=== PATIENT | female | born 1995 | race Hispanic/Latino ===

== ENCOUNTER 2020-11-24 17:38 | Observation (INO) | payer OTHER ==
[2020-11-24] MEDS ORDERED: LACTATED RINGERS 1,000 ML IV SCH ×2 (19:00→21:30)
[2020-11-24] MEDS ORDERED: DOCUSATE SODIUM 100 MG CAP PO PRN (21:26)
[2020-11-24] MEDS ORDERED: ACETAMINOPHEN 325 MG TAB PO PRN (21:26)
[2020-11-24] MEDS ORDERED: hydrOXYzine PAMOATE 25 MG CAP PO ONE (21:38)
[2020-11-24] MEDS ORDERED: PRENATAL VIT27-FE FUMARATE-FOLIC ACID VIT TAB PO SCH (22:00)
[2020-11-24 22:19] LABS: Basophils # (Auto) 0.1 K/mm3 (0.0-0.1); Basophils % (Auto) 0.7 % (0.0-1.8); Eosinophils % (Auto) 0.3 % (0.0-4.3); Hematocrit 30.8 % (30.3-42.9); Hemoglobin 10.7 gm/dl (10.1-14.3); Lymphocytes # (Auto) 2.6 K/mm3 (1.2-5.4); Lymphocytes % (Auto) 29.5 % (13.4-35.0); Mean Corpuscular HGB Conc 35 % (30-34); Mean Corpuscular Volume 90 fl (79-97); Monocytes # (Auto) 0.5 K/mm3 (0.0-0.8); Monocytes % (Auto) 5.6 % (0.0-7.3); Platelet Count 276 K/mm3 (140-440); Red Blood Count 3.44 M/mm3 (3.65-5.03); Red Cell Distribution Width 15.8 % (13.2-15.2)
[2020-11-24 22:20] LABS: Bilirubin,Urine NEG (Negative); Blood,Urine NEG (Negative); Color,Urine Colorless (Yellow); Protein,Urine <15 mg/dL mg/dL (Negative); RBC,Urine < 1.0 /HPF (0.0-6.0); Urobilinogen,Urine < 2.0 mg/dL (<2.0)
[2020-11-24 22:21] LABS: WBC,Urine < 1.0 /HPF (0.0-6.0)
[2020-11-24] MEDS ORDERED: fentaNYL 100 MCG/2 ML INJ IV ONE (22:27)
[2020-11-24 22:29] LABS: Amphetamine Screen,Urine PRESUMPTIVE NEGATIVE; Benzodiazepines Screen,Urine PRESUMPTIVE NEGATIVE; Cannabinoid Screen,Urine PRESUMPTIVE NEGATIVE; Cocaine Screen,Urine PRESUMPTIVE NEGATIVE; Methadone Screen,Urine PRESUMPTIVE NEGATIVE; Opiate Screen,Urine PRESUMPTIVE NEGATIVE
[2020-11-25] MEDS ORDERED: fentaNYL 100 MCG/2 ML INJ IV ONE (02:51)
[2020-11-25 04:40] VITALS: BP 105/68
== END 2020-11-25 07:40 | disposition home or self-care (01) ==
LOC: TRG 17:38 → APU 17:39 → LD 21:26 → TRG 21:26 → LD 22:06
PROVIDERS: ADMIT Obstetrics & Gynecology; ATTEND Obstetrics & Gynecology
DX: O47.1 False labor at or after 37 completed weeks of gestation (principal); O62.9 Abnormality of forces of labor, unspecified; O99.513 Diseases of the respiratory system complicating pregnancy, third trimester; J45.909 Unspecified asthma, uncomplicated; Z3A.38 38 weeks gestation of pregnancy; Z90.49 Acquired absence of other specified parts of digestive tract; Z86.19 Personal history of other infectious and parasitic diseases; Z79.899 Other long term (current) drug therapy
CPT/HCPCS: 36415; 76816; 76819; 80307; 81001; 84112; 85025; 86850; 86900; 86901; 96374; 96376; G0378; J3010; J7120

== ENCOUNTER 2020-12-04 15:17 | Outpatient (CLI) | payer OTHER | END 2020-12-04 16:45 | disposition home or self-care (01) | LOC: TRG 15:17 → APU 15:18 → TRG 16:45 | DX: O26.893 Other specified pregnancy related conditions, third trimester (principal); M54.5 Low back pain; Z3A.40 40 weeks gestation of pregnancy | CPT/HCPCS: 59025 ==

== ENCOUNTER 2020-12-08 20:40 | Inpatient (IN) | payer OTHER ==
[2020-12-08] MEDS ORDERED: LIDOCAINE (2%) 20 MG/1 ML VIAL 20 ML MDV INFILTRATI ONE (20:58)
[2020-12-08] MEDS ORDERED: AMPICILLIN/NS 2 GM/100 ML 2 GM/100 ML BAG IV ONE (20:58)
[2020-12-08] MEDS ORDERED: TERBUTALINE 1 MG/1 ML INJ SUB-Q PRN (20:58)
[2020-12-08] MEDS ORDERED: LOPERAMIDE 2 MG CAP PO PRN (20:58)
[2020-12-08] MEDS ORDERED: ePHEDrine SULFATE 50 MG/1 ML INJ IV PRN (20:58)
[2020-12-08] MEDS ORDERED: CARBOPROST TROMETHAMINE 250 MCG/1 ML INJ IM PRN (20:58)
[2020-12-08] MEDS ORDERED: miSOPROStol 200 MCG TAB PR PRN (20:58)
[2020-12-08] MEDS ORDERED: OXYTOCIN 10 UNIT/1 ML INJ IM PRN (20:58)
[2020-12-08] MEDS ORDERED: METHYLERGONOVINE MALEATE 0.2 MG/ML VIAL IM PRN (20:58)
[2020-12-08] MEDS ORDERED: MINERAL OIL 30 ML ORAL LIQD PO PRN (20:58)
[2020-12-08] MEDS ORDERED: OXYTOCIN DRIP 30 UNITS/500 ML BAG IV SCH ×2 (21:00→22:00)
--- NOTE | 2020-12-08 21:20 | History and Physical Report ---
History of Present Illness Date of examination: 12/08/20 Date of admission: 12/08/20 20:40 Chief complaint: Here for scheduled induction of labor. History of present illness: 25 year old presents for scheduled induction of labor. Patient received care at [facility] and records are available. LMP 03/22/2020. EDC 11/28/2020 (based on ultrasound). significant for the following: anemia, late care, noncompliant with care, UTI (treated), varicella nonimmune, cigarette smoker. labs are as follows: O+, antibody screen negative, rubella immune, RPR nonreactive, HIV negative, hepatitis B surface antigen negative, hemoglobin electrophoresis negative, gonorrhea negative, chlamydia negative, trichomonas negative, varicella immune, 1 hour 126, GBS unknown. Past History Past Medical History: asthma, other (seasonal allergic rhinitis) Past Surgical History: tonsillectomy, other (EAB) [employer] History: denies: chlamydia, gonorrhea, hepatitis B, hepatitis C, herpes, HIV, syphilis, trichomonas Family/Genetic History: diabetes, heart disease, cancer Social history: lives with family, smoking, full code. denies: alcohol abuse, prescription drug abuse, IV drug use - Obstetrical History Expected Date of Delivery: 11/28/20 Actual Gestation: 41 Week(s) 3 Day(s) : 3 Para: 1 Hx # Term Pregnancies: 1 Number of Pregnancies: 0 Spontaneous Abortions: 0 Induced : 1 Number of Living Children: 1 Medications and Allergies Allergies Allergy/AdvReac Type Severity Reaction Status Date / Time cat dander Allergy Itching Verified 12/08/20 21:18 Home Medications Medication Instructions Recorded Confirmed Last Taken Type Iron [Iron 18 MG TAB] 1 tab PO DAILY 11/25/20 12/08/20 11/24/20 History Ondansetron HCl [Zofran] 1 tab PO PRN 11/25/20 12/08/20 1 Day Ago History ~12/07/20 Vit-Fe Fumar-FA [ 1 tab PO DAILY 11/25/20 12/08/20 1 Day Ago History Vitamin] ~12/07/20 Active Meds: Active Medications Carboprost Tromethamine (Carboprost Tromethamine 250 Mcg/1 Ml Inj) 250 mcg IM ONCE PRN PRN Reason: Uterine Bleeding Ephedrine Sulfate (Ephedrine Sulfate 50 Mg/1 Ml Inj) 10 mg IV Q2M PRN PRN Reason: Hypotension Lactated Ringer's (Lactated Ringers) 1,000 mls @ 125 mls/hr IV DIRECT LISA Oxytocin/Sodium Chloride (Pitocin/Ns 30 Unit/500ml) 30 units in 500 mls @ 40 mls/hr IV TITR LISA; Protocol Ampicillin Sodium (Ampicillin/Ns 2 Gm/100 Ml) 2 gm in 100 mls @ 100 mls/hr IV ONCE ONE; Protocol Stop: 12/08/20 21:57 Ampicillin Sodium (Ampicillin/Ns 1 Gm/50 Ml) 1 gm in 50 mls @ 100 mls/hr IV Q4H LISA; Protocol Lidocaine (Lidocaine (2%) 20 Mg/1 Ml Vial 20 Ml Mdv) 20 ml INFILTRATI ONCE ONE Stop: 12/08/20 20:59 Loperamide HCl (Loperamide 2 Mg Cap) 2 mg PO ONCE PRN PRN Reason: give with Hemabate Methylergonovine Maleate (Methylergonovine Maleate 0.2 Mg/Ml Vial) 0.2 mg IM ONCE PRN PRN Reason: Uterine Bleeding Mineral Oil (Mineral Oil 30 Ml Oral Liqd) 30 ml PO QHS PRN PRN Reason: Constipation Misoprostol (Misoprostol 200 Mcg Tab) 800 mcg LA ONCE PRN PRN Reason: Uterine Bleeding Ondansetron HCl (Ondansetron 4 Mg/2 Ml Inj) 4 mg IV Q8H PRN PRN Reason: Nausea And Vomiting Oxytocin (Oxytocin 10 Unit/1 Ml Inj) 10 unit IM ONCE PRN PRN Reason: Uterine Bleeding Terbutaline Sulfate (Terbutaline 1 Mg/1 Ml Inj) 0.25 mg SUB-Q ONCE PRN PRN Reason: Hyperstimulation/Hypertonicity Review of Systems All systems: negative (mild contraction) - Physical Exam Lungs: Positive: Clear to auscultation Abdomen: Positive: normal appearance, soft. Negative: distention, tenderness, guarding, rigidity Genitourinary (Female): Positive: normal external genitalia, normal perenium. Negative: perineal/vulvar lesions Vagina: Positive: normal moisture Uterus: Positive: enlarged. Negative: tender Anus/Rectum: Positive: normal perianal skin Extremities: Positive: normal. Negative: tenderness, edema - Obstetrical FHR: category 1 Uterine Contraction Monitor Mode: External Cervical Dilatation: 1 Cervical Effacement Percentage: 50 station: -4 Uterine Contraction Pattern: Irregular Uterine Contraction Intensity: Mild Results Result Diagrams: 12/08/20 21:07 All other labs normal. Assessment and Plan A: at 41 3/7 weeks gestation. Scheduled IOL. GBS unknown. Noncompliant with care. P: Admit. Continuous EFM. GBS prophylaxis. Low dose Pitocin for augmentation of labor.
[2020-12-08 21:33] LABS: Hematocrit 28.5 % (30.3-42.9); Hemoglobin 10.2 gm/dl (10.1-14.3); Mean Corpuscular HGB Conc 36 % (30-34); Mean Corpuscular Volume 87 fl (79-97); Platelet Count 255 K/mm3 (140-440); Red Blood Count 3.29 M/mm3 (3.65-5.03); Red Cell Distribution Width 15.5 % (13.2-15.2)
[2020-12-08 21:58] LABS: Hepatitis C Virus Antibody Reactive (NonReactive)
--- NOTE | 2020-12-08 22:33 | Ultrasound Report ---
Limited OB ultrasound INDICATION: presentation FINDINGS: There is a single live intrauterine in cephalic position. heart rate is 114 bpm. IMPRESSION: Single live intrauterine in cephalic position Signer Name: Jonathan Barth MD Signed: 12/08/2020 10:29 PM Workstation Name: [id number]
[2020-12-08 22:45] LABS: Amphetamine Screen,Urine Negative; Benzodiazepines Screen,Urine Negative; Cannabinoid Screen,Urine Negative; Cocaine Screen,Urine Negative; Methadone Screen,Urine Negative; Opiate Screen,Urine Negative
[2020-12-08 23:38] LABS: Alanine Aminotransferase 19 units/L (7-56); Albumin 3.2 g/dL (3.9-5); Blood Urea Nitrogen 6 mg/dL (7-17); Calcium 8.5 mg/dL (8.4-10.2); Hemolysis Index 15
[2020-12-09 00:01] LABS: BUN/Creatinine Ratio 10
[2020-12-09] MEDS: LACTATED RINGERS 1,000 ML IV SCH ×2 (00:03→13:17)
[2020-12-09] MEDS ORDERED: AMPICILLIN/NS 1 GM/50 ML 1 GM/50 ML BAG IV SCH (02:00)
[2020-12-09] MEDS ORDERED: AMPICILLIN/NS 2 GM/100 ML 2 GM/100 ML BAG IV SCH (10:00)
--- NOTE | 2020-12-09 10:24 | Progress Note ---
Assessment and Plan A: IUP @ 41 4/7 Weeks Category I Tracing GBS Unknown P: Continue Low-Dose Pitocin Cook's Cervical Ripening Balloon Placed IV Pain Control Start GBS Prophylaxis Subjective - Subjective Date of service: 12/09/20 Patient reports: movement normal, contractions, other (Requesting IV Pain Control) Objective - Vital Signs Vital Signs: Vital Signs - 12hr 12/09/20 12/09/20 12/09/20 02:56 03:04 07:04 Temperature 98.1 F Pulse Rate 75 80 Respiratory 18 Rate Blood Pressure 111/54 91/52 12/09/20 12/09/20 07:43 09:15 Temperature 97.8 F Pulse Rate 88 Respiratory 16 Rate Blood Pressure 93/51 - Exam Breasts: normal Cardiovascular: Regular rate Lungs: Clear to auscultation, Normal air movement Abdomen: Present: normal appearance, soft, normal bowel sounds Uterus: Present: normal, firm, fundal height above umbilicus FHR: category 1 Uterine Contraction Monitor Mode: External Cervical Dilatation: 1 (Vtx; Intact) Cervical Effacement Percentage: 30 station: -4 Uterine Contraction Pattern: Regular Uterine Tone Measurement Phase: Resting Uterine Contraction Intensity: Moderate Extremities: normal - Labs Labs: Abnormal Labs 12/08/20 12/08/20 12/08/20 21:07 21:07 22:55 RBC 3.29 L Hct 28.5 L MCHC 36 H RDW 15.5 H BUN 6 L Alkaline Phosphatase 180 H Albumin 3.2 L Hepatitis C Antibody Reactive A Laboratory Results - last 24 hr 12/08/20 12/08/20 12/08/20 21:07 21:07 21:07 WBC 7.5 RBC 3.29 L Hgb 10.2 Hct 28.5 L MCV 87 MCH 31 MCHC 36 H RDW 15.5 H Plt Count 255 Sodium Potassium Chloride Carbon Dioxide Anion Gap BUN Creatinine Estimated GFR BUN/Creatinine Ratio Glucose Calcium Total Bilirubin AST ALT Alkaline Phosphatase Total Protein Albumin Albumin/Globulin Ratio Urine Opiates Screen Urine Methadone Screen Ur Barbiturates Screen Ur Phencyclidine Scrn Ur Amphetamines Screen U Benzodiazepines Scrn Urine Cocaine Screen U Marijuana (THC) Screen Drugs of Abuse Note Syphilis IgG Antibody Nonreactive Hep Bs Antigen Hepatitis C Antibody Reactive A HIV 1&2 Antibody Rapid HIV P24 Antigen Blood Type O POSITIVE Antibody Screen Negative 12/08/20 12/08/20 12/08/20 21:07 21:07 22:28 WBC RBC Hgb Hct MCV MCH MCHC RDW Plt Count Sodium Potassium Chloride Carbon Dioxide Anion Gap BUN Creatinine Estimated GFR BUN/Creatinine Ratio Glucose Calcium Total Bilirubin AST ALT Alkaline Phosphatase Total Protein Albumin Albumin/Globulin Ratio Urine Opiates Screen Negative Urine Methadone Screen Negative Ur Barbiturates Screen Negative Ur Phencyclidine Scrn Negative Ur Amphetamines Screen Negative U Benzodiazepines Scrn Negative Urine Cocaine Screen Negative U Marijuana (THC) Screen Negative Drugs of Abuse Note Disclamer Syphilis IgG Antibody Hep Bs Antigen Non-reactive Hepatitis C Antibody HIV 1&2 Antibody Rapid Non react HIV P24 Antigen Non react Blood Type Antibody Screen 12/08/20 22:55 WBC RBC Hgb Hct MCV MCH MCHC RDW Plt Count Sodium 138 Potassium 4.1 Chloride 103.3 Carbon Dioxide 24 Anion Gap 15 BUN 6 L Creatinine 0.6 Estimated GFR > 60 BUN/Creatinine Ratio 10 Glucose 90 Calcium 8.5 Total Bilirubin 0.20 AST 26 ALT 19 Alkaline Phosphatase 180 H Total Protein 6.4 Albumin 3.2 L Albumin/Globulin Ratio 1.0 Urine Opiates Screen Urine Methadone Screen Ur Barbiturates Screen Ur Phencyclidine Scrn Ur Amphetamines Screen U Benzodiazepines Scrn Urine Cocaine Screen U Marijuana (THC) Screen Drugs of Abuse Note Syphilis IgG Antibody Hep Bs Antigen Hepatitis C Antibody HIV 1&2 Antibody Rapid HIV P24 Antigen Blood Type Antibody Screen
[2020-12-09] MEDS ORDERED: AMPICILLIN/NS 2 GM/100 ML 2 GM/100 ML BAG IV ONE (10:27)
[2020-12-09] MEDS ORDERED: BUTORPHANOL 2 MG/1 ML INJ ONE (10:27)
[2020-12-09] MEDS: BUTORPHANOL 2 MG/1 ML INJ IV PRN ×2 (10:30→13:23)
--- NOTE | 2020-12-09 15:29 | Anesthesia Consultation ---
Anesthesia Consult and Med Hx Date of service: 12/09/20 - Airway Anesthetic Teeth Evaluation: Poor ROM Head & Neck: Adequate Mental/Hyoid Distance: Adequate Mallampati Class: Class II Intubation Access Assessment: Probably Good - Pulmonary Exam CTA: Yes - Cardiac Exam Cardiac Exam: RRR - Pre-Operative Health Status ASA Pre-Surgery Classification: ASA2 Proposed Anesthetic Plan: Epidural - Pulmonary Hx Smoking: Yes Hx Asthma: Yes (last attack in 08/11) Hx Respiratory Symptoms: No SOB: Yes COPD: No Home Oxygen Therapy: No Hx Pneumonia: No Hx Sleep Apnea: No - Cardiovascular System Hx Hypertension: No Hx Coronary Artery Disease: No Hx Heart Attack/AMI: No Hx Angina: No Hx Percutaneous Transluminal Coronary Angioplasty (PTCA): No Hx Cardia Arrhythmia: No Hx Pacemaker: No Hx Internal Defibrillator: No Hx Valvular Heart Disease: No Hx Heart Murmur: No Hx Peripheral Vascular Disease: No - Central Nervous System Hx Neuromuscular Disorder: No Hx Seizures: No Hx Back Pain: No Hx Psychiatric Problems: Yes (anxiety) - Gastrointestinal Hx Ulcer: No Hx Gastroesophageal Reflux Disease: Yes - Endocrine Hx Renal Disease: No Hx End Stage Renal Disease: No Hx Cirrhosis: No Hx Liver Disease: No Hx Insulin Dependent Diabetes: No Hx Non-Insulin Dependent Diabetes: No Hx Thyroid Disease: No Hx Hypothyroidism: No Hx Hyperthyroidism: No - Hematic Hx Anemia: No Hx Sickle Cell Disease: No - Other Systems Hx Alcohol Use: No Hx Substance Use: No Hx Cancer: No Hx Obesity: No
[2020-12-09] MEDS ORDERED: fentaNYL-BUPIV 2 MCG/ML-0.125% 200 MCG/100 ML BAG EPIDURAL ONE (15:36)
[2020-12-09] MEDS: fentaNYL-BUPIV 2 MCG/ML-0.125% 200 MCG/100 ML BAG EPIDURAL SCH (15:49)
--- NOTE | 2020-12-09 15:58 | Progress Note ---
Labor Epidural - Labor Epidural Start Time: 14:55 Stop Time: 15:10 Performed by:: MEG WHITNEY Procedure: Patient is requesting a laboring epidural for laboring pain. Patient IDed, H&P reviewed, all questions and concerns were answered, and consent was signed. Timeout was performed at bedside. Patient in sitting position. Sterile prep and drape was performed. [3] ml of 1% lidocaine skin wheal at L[3]- L [4]. 18- gauge Tuohy epidural needle was advanced to loss of resistance with saline technique 6cm. Negative CSF negative blood. Epidural catheter advanced to [10] centimeters. [NEGATIVE] Aspiration [NEGATIVE] test dose. Sterile dressing applied. Patient tolerated procedure.
[2020-12-09] MEDS ORDERED: NALOXONE 2 MG/2 ML INJ IV PRN (16:00)
[2020-12-09] MEDS: ePHEDrine SULFATE 50 MG/1 ML INJ IV PRN ×2 (16:08→16:15)
[2020-12-09] MEDS: ONDANSETRON 4 MG/2 ML INJ IV PRN (19:22)
--- NOTE | 2020-12-09 22:33 | Progress Note ---
Assessment and Plan CVONTINUE INDUCTION WITH PITOCIN AND EPIDURAL. - Patient Problems (1) 38 weeks gestation of Current Visit: No Status: Acute (2) False labor Current Visit: No Status: Acute Subjective Date of service: 12/09/20 Principal diagnosis: 41 wk IUP Objective - Constitutional Vitals: Vital Signs - 12hr 12/09/20 12/09/20 12/09/20 13:23 15:00 15:05 Temperature Pulse Rate 96 H 97 H Respiratory 20 Rate Blood Pressure 108/70 O2 Sat by Pulse 99 99 Oximetry 12/09/20 12/09/20 12/09/20 15:10 15:12 15:14 Temperature Pulse Rate 95 H 86 94 H Respiratory Rate Blood Pressure 110/72 108/72 112/70 O2 Sat by Pulse 100 Oximetry 12/09/20 12/09/20 12/09/20 15:15 15:20 15:25 Temperature Pulse Rate 109 H 73 78 Respiratory Rate Blood Pressure O2 Sat by Pulse 99 97 98 Oximetry 12/09/20 12/09/20 12/09/20 15:30 15:32 15:35 Temperature Pulse Rate 78 86 109 H Respiratory Rate Blood Pressure 94/58 O2 Sat by Pulse 98 99 Oximetry 12/09/20 12/09/20 12/09/20 15:36 15:38 15:40 Temperature Pulse Rate 52 L 102 H 100 H Respiratory Rate Blood Pressure 116/63 O2 Sat by Pulse 80 L 96 Oximetry 12/09/20 12/09/20 12/09/20 15:43 15:45 15:50 Temperature Pulse Rate 87 97 H 93 H Respiratory Rate Blood Pressure 106/55 O2 Sat by Pulse 98 98 Oximetry 12/09/20 12/09/20 12/09/20 15:55 16:00 16:01 Temperature Pulse Rate 80 82 82 Respiratory Rate Blood Pressure 79/46 O2 Sat by Pulse 98 97 Oximetry 12/09/20 12/09/20 12/09/20 16:05 16:07 16:09 Temperature Pulse Rate 71 80 86 Respiratory Rate Blood Pressure 92/57 107/58 O2 Sat by Pulse 99 Oximetry 12/09/20 12/09/20 12/09/20 16:10 16:11 16:13 Temperature Pulse Rate 77 85 83 Respiratory Rate Blood Pressure 95/55 98/55 O2 Sat by Pulse 99 Oximetry 12/09/20 12/09/2021 16:15 16:17 16:20 Temperature Pulse Rate 98 H 86 81 Respiratory Rate Blood Pressure 98/60 97/55 O2 Sat by Pulse 98 98 Oximetry 12/09/20 12/09/20 12/09/20 16:25 16:30 16:35 Temperature Pulse Rate 83 105 H 89 Respiratory Rate Blood Pressure O2 Sat by Pulse 100 98 97 Oximetry 12/09/20 12/09/20 12/09/20 16:40 16:45 16:47 Temperature Pulse Rate 107 H 81 110 H Respiratory Rate Blood Pressure 90/56 O2 Sat by Pulse 98 99 Oximetry 12/09/20 12/09/20 12/09/20 16:50 16:55 17:00 Temperature Pulse Rate 92 H 100 H 84 Respiratory Rate Blood Pressure O2 Sat by Pulse 97 100 99 Oximetry 12/09/20 12/09/20 12/09/20 17:05 17:10 17:15 Temperature Pulse Rate 97 H 101 H 96 H Respiratory Rate Blood Pressure O2 Sat by Pulse 99 100 99 Oximetry 12/09/20 12/09/20 12/09/20 17:19 17:20 17:25 Temperature Pulse Rate 91 H 104 H 79 Respiratory Rate Blood Pressure 84/53 O2 Sat by Pulse 100 99 Oximetry 12/09/20 12/09/20 12/09/20 17:26 17:30 17:32 Temperature Pulse Rate 94 H 88 85 Respiratory Rate Blood Pressure 81/52 O2 Sat by Pulse 94 98 Oximetry 12/09/20 12/09/20 12/09/20 17:35 17:40 17:43 Temperature Pulse Rate 97 H 84 106 H Respiratory Rate Blood Pressure 88/55 O2 Sat by Pulse 100 100 87 Oximetry 12/09/20 12/09/20 12/09/20 17:45 17:50 17:55 Temperature Pulse Rate 111 H 67 102 H Respiratory Rate Blood Pressure 90/52 O2 Sat by Pulse 98 83 L 92 Oximetry 12/09/20 12/09/20 12/09/20 17:58 18:00 18:05 Temperature Pulse Rate 82 77 107 H Respiratory Rate Blood Pressure 85/48 O2 Sat by Pulse 95 86 Oximetry 12/09/20 12/09/20 12/09/20 18:06 18:08 18:10 Temperature Pulse Rate 114 H 94 H 104 H Respiratory Rate Blood Pressure 88/52 O2 Sat by Pulse 91 98 Oximetry 12/09/20 12/09/20 12/09/20 18:15 18:18 18:20 Temperature Pulse Rate 103 H 91 H 108 H Respiratory Rate Blood Pressure 91/58 O2 Sat by Pulse 98 100 Oximetry 12/09/20 12/09/20 12/09/20 18:25 18:30 18:31 Temperature Pulse Rate 82 97 H 95 H Respiratory Rate Blood Pressure 90/54 O2 Sat by Pulse 95 99 93 Oximetry 12/09/20 12/09/20 12/09/20 18:35 18:36 18:37 Temperature Pulse Rate 92 H 87 190 H Respiratory Rate Blood Pressure 116/65 O2 Sat by Pulse 98 87 Oximetry 12/09/20 12/09/20 12/09/20 18:40 18:43 18:45 Temperature Pulse Rate 100 H 83 101 H Respiratory Rate Blood Pressure O2 Sat by Pulse 98 92 100 Oximetry 12/09/20 12/09/20 12/09/20 18:48 18:50 18:55 Temperature Pulse Rate 94 H 84 100 H Respiratory Rate Blood Pressure 108/57 O2 Sat by Pulse 89 100 Oximetry 12/09/20 12/09/20 12/09/20 18:58 19:00 19:04 Temperature Pulse Rate 90 105 H 85 Respiratory Rate Blood Pressure 105/53 O2 Sat by Pulse 96 93 Oximetry 12/09/20 12/09/20 12/09/20 19:05 19:06 19:10 Temperature Pulse Rate 84 82 76 Respiratory Rate Blood Pressure 97/54 O2 Sat by Pulse 100 90 Oximetry 12/09/20 12/09/20 12/09/20 19:15 19:16 19:19 Temperature Pulse Rate 87 92 H 99 H Respiratory Rate Blood Pressure 88/51 O2 Sat by Pulse 100 91 Oximetry 12/09/20 12/09/20 12/09/20 19:20 19:25 19:26 Temperature Pulse Rate 91 H 89 91 H Respiratory Rate Blood Pressure 105/54 O2 Sat by Pulse 96 96 Oximetry 12/09/20 12/09/20 12/09/20 19:27 19:30 19:33 Temperature Pulse Rate 101 H 75 84 Respiratory Rate Blood Pressure O2 Sat by Pulse 86 85 94 Oximetry 12/09/20 12/09/20 12/09/20 19:35 19:38 19:40 Temperature Pulse Rate 88 85 99 H Respiratory Rate Blood Pressure O2 Sat by Pulse 89 88 96 Oximetry 12/09/20 12/09/20 12/09/20 19:44 19:45 19:50 Temperature Pulse Rate 87 100 H 93 H Respiratory Rate Blood Pressure O2 Sat by Pulse 90 98 95 Oximetry 12/09/20 12/09/20 12/09/20 19:51 19:55 19:57 Temperature Pulse Rate 93 H 97 H 82 Respiratory Rate Blood Pressure 96/54 O2 Sat by Pulse 90 98 Oximetry 12/09/20 12/09/20 12/09/20 20:00 20:01 20:05 Temperature Pulse Rate 96 H 98 H 51 L Respiratory Rate Blood Pressure O2 Sat by Pulse 98 90 88 Oximetry 12/09/20 12/09/20 12/09/20 20:06 20:08 20:10 Temperature Pulse Rate 90 91 H 97 H Respiratory Rate Blood Pressure 139/57 O2 Sat by Pulse 87 84 Oximetry 12/09/20 12/09/20 12/09/20 20:14 20:15 20:17 Temperature Pulse Rate 85 88 95 H Respiratory Rate Blood Pressure 83/51 O2 Sat by Pulse 91 86 Oximetry 12/09/20 12/09/20 12/09/20 20:20 20:22 20:25 Temperature Pulse Rate 98 H 96 H 87 Respiratory Rate Blood Pressure 84/62 O2 Sat by Pulse 99 93 99 Oximetry 12/09/20 12/09/20 12/09/20 20:26 20:27 20:30 Temperature 98.6 F Pulse Rate 82 97 H Respiratory Rate Blood Pressure O2 Sat by Pulse 92 99 Oximetry 12/09/20 12/09/20 12/09/20 20:34 20:35 20:39 Temperature Pulse Rate 103 H 99 H 95 H Respiratory Rate Blood Pressure O2 Sat by Pulse 87 89 92 Oximetry 12/09/20 12/09/20 12/09/20 20:40 20:45 20:47 Temperature Pulse Rate 90 91 H 106 H Respiratory Rate Blood Pressure O2 Sat by Pulse 98 100 93 Oximetry 12/09/20 12/09/20 12/09/20 20:50 20:54 20:55 Temperature Pulse Rate 91 H 97 H 94 H Respiratory Rate Blood Pressure 96/55 O2 Sat by Pulse 97 90 Oximetry 12/09/20 12/09/20 12/09/20 21:24 21:53 22:24 Temperature Pulse Rate 79 98 H 77 Respiratory Rate Blood Pressure 110/57 111/69 102/54 O2 Sat by Pulse Oximetry - Genitourinary Female genitourinary: other (CX 4CMS, 755,-4 STATION, BOW INTACT) - Labs CBC & Chem 7: 12/08/20 21:07 12/08/20 22:55 Labs: Abnormal lab results 12/08/20 Range/Units 22:55 BUN 6 L (7-17) mg/dL Alkaline Phosphatase 180 H (35-129) units/L Albumin 3.2 L (3.9-5) g/dL Medications & Allergies - Medications Allergies/Adverse Reactions: Allergies cat dander Allergy (Verified 12/08/20 22:07) Itching Home Medications: Home Medications Medication Instructions Recorded Confirmed Last Taken Type Iron [Iron 18 MG TAB] 1 tab PO DAILY 11/25/20 12/08/20 11/24/20 History Ondansetron HCl [Zofran] 1 tab PO PRN 11/25/20 12/08/20 1 Day Ago History ~12/07/20 Vit-Fe Fumar-FA [ 1 tab PO DAILY 11/25/20 12/08/20 1 Day Ago History Vitamin] ~12/07/20 Active Medications: Generic Name Dose Route Start Last Admin Trade Name Candy PRN Reason Stop Dose Admin Butorphanol Tartrate 2 mg 12/09/20 11:00 12/09/20 13:23 Butorphanol 2 Mg/1 Ml Inj IV 2 mg Q2H PRN Administration Labor Pain Carboprost Tromethamine 250 mcg 12/08/20 20:58 Carboprost Tromethamine 250 Mcg/1 Ml Inj IM ONCE PRN Uterine Bleeding Ephedrine Sulfate 10 mg 12/09/20 16:00 12/09/20 16:15 Ephedrine Sulfate 50 Mg/1 Ml Inj IV 10 mg Q2M PRN Administration Hypotension Lactated Ringer's 1,000 mls @ 125 mls/hr 12/08/20 21:00 12/09/20 13:17 Lactated Ringers IV 125 mls/hr DIRECT LISA Administration Oxytocin/Sodium Chloride 30 units in 500 mls @ 40 mls/hr 12/08/20 21:00 Pitocin/Ns 30 Unit/500ml IV TITR LISA Protocol Oxytocin/Sodium Chloride 30 units in 500 mls @ 2 mls/hr 12/08/20 22:00 12/09/20 06:23 Pitocin/Ns 30 Unit/500ml IV 6 ml/hr TITR LISA 6 mls/hr Titration Protocol Ampicillin Sodium 1 gm in 50 mls @ 100 mls/hr 12/09/20 15:00 Ampicillin/Ns 1 Gm/50 Ml IV Q4H LISA Protocol Fentanyl/Bupivacaine/Sodium Chlor 200 mcg in 100 mls @ 12 mls/hr 12/09/20 16:00 12/09/20 15:49 Fentanyl-Bupiv 2 Mcg/Ml-0.125% EPIDURAL 12 mls/hr TITR LISA Administration Protocol Loperamide HCl 2 mg 12/08/20 20:58 Loperamide 2 Mg Cap PO ONCE PRN give with Hemabate Methylergonovine Maleate 0.2 mg 12/08/20 20:58 Methylergonovine Maleate 0.2 Mg/Ml Vial IM ONCE PRN Uterine Bleeding Mineral Oil 30 ml 12/08/20 20:58 Mineral Oil 30 Ml Oral Liqd PO QHS PRN Constipation Misoprostol 800 mcg 12/08/20 20:58 Misoprostol 200 Mcg Tab NE ONCE PRN Uterine Bleeding Naloxone HCl 0.2 mg 12/09/20 16:00 Naloxone 2 Mg/2 Ml Inj IV Q5M PRN Respiratory sedation Ondansetron HCl 4 mg 12/08/20 20:58 12/09/20 19:22 Ondansetron 4 Mg/2 Ml Inj IV 4 mg Q8H PRN Administration Nausea And Vomiting Oxytocin 10 unit 12/08/20 20:58 Oxytocin 10 Unit/1 Ml Inj IM ONCE PRN Uterine Bleeding Terbutaline Sulfate 0.25 mg 12/08/20 20:58 Terbutaline 1 Mg/1 Ml Inj SUB-Q ONCE PRN Hyperstimulation/Hypertonicity
[2020-12-09] MEDS: AMPICILLIN/NS 1 GM/50 ML 1 GM/50 ML BAG IV SCH (22:42)
[2020-12-10] MEDS: fentaNYL-BUPIV 2 MCG/ML-0.125% 200 MCG/100 ML BAG EPIDURAL SCH ×2 (01:14→10:29)
[2020-12-10] MEDS: AMPICILLIN/NS 1 GM/50 ML 1 GM/50 ML BAG IV SCH ×2 (02:57→06:29)
--- NOTE | 2020-12-10 06:28 | Progress Note ---
Assessment and Plan - Patient Problems (1) 38 weeks gestation of Current Visit: No Status: Acute (2) False labor Current Visit: No Status: Acute Subjective Date of service: 12/10/20 Principal diagnosis: 41 wk IUP Objective - Constitutional Vitals: Vital Signs - 12hr 12/09/20 12/09/20 12/09/20 18:25 18:30 18:31 Temperature Pulse Rate 82 97 H 95 H Blood Pressure 90/54 O2 Sat by Pulse 95 99 93 Oximetry 12/09/20 12/09/20 12/09/20 18:35 18:36 18:37 Temperature Pulse Rate 92 H 87 190 H Blood Pressure 116/65 O2 Sat by Pulse 98 87 Oximetry 12/09/20 12/09/20 12/09/20 18:40 18:43 18:45 Temperature Pulse Rate 100 H 83 101 H Blood Pressure O2 Sat by Pulse 98 92 100 Oximetry 12/09/20 12/09/20 12/09/20 18:48 18:50 18:55 Temperature Pulse Rate 94 H 84 100 H Blood Pressure 108/57 O2 Sat by Pulse 89 100 Oximetry 12/09/20 12/09/20 12/09/20 18:58 19:00 19:04 Temperature Pulse Rate 90 105 H 85 Blood Pressure 105/53 O2 Sat by Pulse 96 93 Oximetry 12/09/20 12/09/20 12/09/20 19:05 19:06 19:10 Temperature Pulse Rate 84 82 76 Blood Pressure 97/54 O2 Sat by Pulse 100 90 Oximetry 12/09/20 12/09/20 12/09/20 19:15 19:16 19:19 Temperature Pulse Rate 87 92 H 99 H Blood Pressure 88/51 O2 Sat by Pulse 100 91 Oximetry 12/09/20 12/09/20 12/09/20 19:20 19:25 19:26 Temperature Pulse Rate 91 H 89 91 H Blood Pressure 105/54 O2 Sat by Pulse 96 96 Oximetry 12/09/20 12/09/20 12/09/20 19:27 19:30 19:33 Temperature Pulse Rate 101 H 75 84 Blood Pressure O2 Sat by Pulse 86 85 94 Oximetry 12/09/20 12/09/20 12/09/20 19:35 19:38 19:40 Temperature Pulse Rate 88 85 99 H Blood Pressure O2 Sat by Pulse 89 88 96 Oximetry 12/09/20 12/09/20 12/09/20 19:44 19:45 19:50 Temperature Pulse Rate 87 100 H 93 H Blood Pressure O2 Sat by Pulse 90 98 95 Oximetry 12/09/20 12/09/20 12/09/20 19:51 19:55 19:57 Temperature Pulse Rate 93 H 97 H 82 Blood Pressure 96/54 O2 Sat by Pulse 90 98 Oximetry 12/09/20 12/09/20 12/09/20 20:00 20:01 20:05 Temperature Pulse Rate 96 H 98 H 51 L Blood Pressure O2 Sat by Pulse 98 90 88 Oximetry 12/09/20 12/09/20 12/09/20 20:06 20:08 20:10 Temperature Pulse Rate 90 91 H 97 H Blood Pressure 139/57 O2 Sat by Pulse 87 84 Oximetry 12/09/20 12/09/20 12/09/20 20:14 20:15 20:17 Temperature Pulse Rate 85 88 95 H Blood Pressure 83/51 O2 Sat by Pulse 91 86 Oximetry 12/09/20 12/09/20 12/09/20 20:20 20:22 20:25 Temperature Pulse Rate 98 H 96 H 87 Blood Pressure 84/62 O2 Sat by Pulse 99 93 99 Oximetry 12/09/20 12/09/20 12/09/20 20:26 20:27 20:30 Temperature 98.6 F Pulse Rate 82 97 H Blood Pressure O2 Sat by Pulse 92 99 Oximetry 12/09/20 12/09/20 12/09/20 20:34 20:35 20:39 Temperature Pulse Rate 103 H 99 H 95 H Blood Pressure O2 Sat by Pulse 87 89 92 Oximetry 12/09/20 12/09/20 12/09/20 20:40 20:45 20:47 Temperature Pulse Rate 90 91 H 106 H Blood Pressure O2 Sat by Pulse 98 100 93 Oximetry 12/09/20 12/09/20 12/09/20 20:50 20:54 20:55 Temperature Pulse Rate 91 H 97 H 94 H Blood Pressure 96/55 O2 Sat by Pulse 97 90 Oximetry 12/09/20 12/09/20 12/09/20 21:24 21:53 22:24 Temperature Pulse Rate 79 98 H 77 Blood Pressure 110/57 111/69 102/54 O2 Sat by Pulse Oximetry 12/09/20 12/09/20 12/09/20 22:53 23:23 23:52 Temperature Pulse Rate 100 H 86 83 Blood Pressure 109/67 104/62 97/53 O2 Sat by Pulse Oximetry 12/10/20 12/10/20 12/10/20 00:22 00:52 01:24 Temperature Pulse Rate 81 64 81 Blood Pressure 98/52 98/54 95/51 O2 Sat by Pulse Oximetry 12/10/20 12/10/20 12/10/20 01:52 02:23 02:32 Temperature Pulse Rate 81 88 83 Blood Pressure 90/52 76/40 90/53 O2 Sat by Pulse Oximetry 12/10/20 12/10/20 12/10/20 02:52 03:22 03:52 Temperature Pulse Rate 80 77 76 Blood Pressure 91/50 96/55 91/56 O2 Sat by Pulse Oximetry 12/10/20 12/10/20 12/10/20 04:23 04:52 05:02 Temperature 98.7 F Pulse Rate 72 70 Blood Pressure 83/51 107/67 O2 Sat by Pulse Oximetry 12/10/20 12/10/20 05:22 05:54 Temperature Pulse Rate 78 78 Blood Pressure 103/62 96/61 O2 Sat by Pulse Oximetry General appearance: Present: no acute distress - Genitourinary Female genitourinary: other (cx 4 cms, arom, vtx ,-4.) - Labs CBC & Chem 7: 12/08/20 21:07 12/08/20 22:55 Medications & Allergies - Medications Allergies/Adverse Reactions: Allergies cat dander Allergy (Verified 12/08/20 22:07) Itching Home Medications: Home Medications Medication Instructions Recorded Confirmed Last Taken Type Iron [Iron 18 MG TAB] 1 tab PO DAILY 11/25/20 12/08/20 11/24/20 History Ondansetron HCl [Zofran] 1 tab PO PRN 11/25/20 12/08/20 1 Day Ago History ~12/07/20 Vit-Fe Fumar-FA [ 1 tab PO DAILY 11/25/20 12/08/20 1 Day Ago History Vitamin] ~12/07/20 Active Medications: Generic Name Dose Route Start Last Admin Trade Name Freq PRN Reason Stop Dose Admin Butorphanol Tartrate 2 mg 12/09/20 11:00 12/09/20 13:23 Butorphanol 2 Mg/1 Ml Inj IV 2 mg Q2H PRN Administration Labor Pain Carboprost Tromethamine 250 mcg 12/08/20 20:58 Carboprost Tromethamine 250 Mcg/1 Ml Inj IM ONCE PRN Uterine Bleeding Ephedrine Sulfate 10 mg 12/09/20 16:00 12/09/20 16:15 Ephedrine Sulfate 50 Mg/1 Ml Inj IV 10 mg Q2M PRN Administration Hypotension Lactated Ringer's 1,000 mls @ 125 mls/hr 12/08/20 21:00 12/09/20 13:17 Lactated Ringers IV 125 mls/hr DIRECT LISA Administration Oxytocin/Sodium Chloride 30 units in 500 mls @ 40 mls/hr 12/08/20 21:00 Pitocin/Ns 30 Unit/500ml IV TITR LISA Protocol Oxytocin/Sodium Chloride 30 units in 500 mls @ 2 mls/hr 12/08/20 22:00 12/10/20 05:34 Pitocin/Ns 30 Unit/500ml IV 18 ml/hr TITR LISA 18 mls/hr Titration Protocol Ampicillin Sodium 1 gm in 50 mls @ 100 mls/hr 12/09/20 15:00 12/10/20 02:57 Ampicillin/Ns 1 Gm/50 Ml IV 100 mls/hr Q4H LISA Administration Protocol Fentanyl/Bupivacaine/Sodium Chlor 200 mcg in 100 mls @ 12 mls/hr 12/09/20 16:00 12/10/20 01:14 Fentanyl-Bupiv 2 Mcg/Ml-0.125% EPIDURAL 12 mls/hr TITR LISA Administration Protocol Loperamide HCl 2 mg 12/08/20 20:58 Loperamide 2 Mg Cap PO ONCE PRN give with Hemabate Methylergonovine Maleate 0.2 mg 12/08/20 20:58 Methylergonovine Maleate 0.2 Mg/Ml Vial IM ONCE PRN Uterine Bleeding Mineral Oil 30 ml 12/08/20 20:58 Mineral Oil 30 Ml Oral Liqd PO QHS PRN Constipation Misoprostol 800 mcg 12/08/20 20:58 Misoprostol 200 Mcg Tab CO ONCE PRN Uterine Bleeding Naloxone HCl 0.2 mg 12/09/20 16:00 Naloxone 2 Mg/2 Ml Inj IV Q5M PRN Respiratory sedation Ondansetron HCl 4 mg 12/08/20 20:58 12/09/20 19:22 Ondansetron 4 Mg/2 Ml Inj IV 4 mg Q8H PRN Administration Nausea And Vomiting Oxytocin 10 unit 12/08/20 20:58 Oxytocin 10 Unit/1 Ml Inj IM ONCE PRN Uterine Bleeding Terbutaline Sulfate 0.25 mg 12/08/20 20:58 Terbutaline 1 Mg/1 Ml Inj SUB-Q ONCE PRN Hyperstimulation/Hypertonicity
[2020-12-10 10:03] LABS: Amphetamine Screen,Urine Negative; Benzodiazepines Screen,Urine Negative; Cannabinoid Screen,Urine Negative; Cocaine Screen,Urine Negative; Methadone Screen,Urine Negative; Opiate Screen,Urine Negative
[2020-12-10] MEDS: LACTATED RINGERS 1,000 ML IV SCH (10:27)
--- NOTE | 2020-12-10 11:32 | Progress Note ---
Assessment and Plan A: IUP@ 41.5wks (postdates) C/O pain P: Continue monitoring with Pitocin Notify anesthesia to assess epidural Anticipate - Patient Problems (1) Post-dates Current Visit: Yes Status: Acute Subjective - Subjective Date of service: 12/10/20 Principal diagnosis: 41.5 wk IUP Patient reports: movement normal, contractions, other (c/o pain and fatigue) Objective - Vital Signs Vital Signs: Vital Signs - 12hr 12/09/20 12/10/20 12/10/20 23:52 00:22 00:52 Temperature Pulse Rate 83 81 64 Respiratory Rate Blood Pressure 97/53 98/52 98/54 Blood Pressure [Right] O2 Sat by Pulse Oximetry 12/10/20 12/10/20 12/10/20 01:24 01:52 02:23 Temperature Pulse Rate 81 81 88 Respiratory Rate Blood Pressure 95/51 90/52 76/40 Blood Pressure [Right] O2 Sat by Pulse Oximetry 12/10/20 12/10/20 12/10/20 02:32 02:52 03:22 Temperature Pulse Rate 83 80 77 Respiratory Rate Blood Pressure 90/53 91/50 96/55 Blood Pressure [Right] O2 Sat by Pulse Oximetry 12/10/20 12/10/20 12/10/20 03:52 04:23 04:52 Temperature Pulse Rate 76 72 70 Respiratory Rate Blood Pressure 91/56 83/51 107/67 Blood Pressure [Right] O2 Sat by Pulse Oximetry 12/10/20 12/10/20 12/10/20 05:02 05:22 05:54 Temperature 98.7 F Pulse Rate 78 78 Respiratory Rate Blood Pressure 103/62 96/61 Blood Pressure [Right] O2 Sat by Pulse Oximetry 12/10/20 12/10/20 12/10/20 06:54 07:23 07:38 Temperature 98.8 F Pulse Rate 82 86 86 Respiratory 20 Rate Blood Pressure 125/69 108/71 Blood Pressure 106/65 [Right] O2 Sat by Pulse 100 Oximetry 12/10/20 12/10/20 12/10/20 07:39 07:53 08:24 Temperature Pulse Rate 88 78 77 Respiratory Rate Blood Pressure 107/65 112/66 94/52 Blood Pressure [Right] O2 Sat by Pulse Oximetry 12/10/20 12/10/20 12/10/20 08:54 09:23 10:06 Temperature Pulse Rate 88 82 75 Respiratory Rate Blood Pressure 100/60 111/68 Blood Pressure [Right] O2 Sat by Pulse 96 Oximetry 12/10/20 12/10/20 12/10/20 10:11 10:13 10:16 Temperature Pulse Rate 65 79 73 Respiratory Rate Blood Pressure 115/76 Blood Pressure [Right] O2 Sat by Pulse 98 94 94 Oximetry 12/10/20 12/10/20 12/10/20 10:20 10:21 10:26 Temperature Pulse Rate 73 71 77 Respiratory Rate Blood Pressure 115/79 Blood Pressure [Right] O2 Sat by Pulse 96 96 Oximetry 12/10/20 12/10/20 12/10/20 10:31 10:36 10:41 Temperature Pulse Rate 71 83 84 Respiratory Rate Blood Pressure 106/60 Blood Pressure [Right] O2 Sat by Pulse 95 94 94 Oximetry 12/10/20 12/10/20 12/10/20 10:46 10:51 10:53 Temperature Pulse Rate 78 75 71 Respiratory Rate Blood Pressure 109/65 Blood Pressure [Right] O2 Sat by Pulse 94 94 Oximetry 12/10/20 12/10/20 12/10/20 10:56 11:00 11:01 Temperature Pulse Rate 78 79 69 Respiratory Rate Blood Pressure Blood Pressure [Right] O2 Sat by Pulse 94 94 94 Oximetry 12/10/20 12/10/20 12/10/20 11:06 11:07 11:11 Temperature Pulse Rate 77 82 78 Respiratory Rate Blood Pressure 109/57 Blood Pressure [Right] O2 Sat by Pulse 94 94 94 Oximetry 12/10/20 12/10/20 12/10/20 11:13 11:16 11:20 Temperature Pulse Rate 76 72 80 Respiratory Rate Blood Pressure Blood Pressure [Right] O2 Sat by Pulse 93 93 93 Oximetry 12/10/20 12/10/20 11:21 11:26 Temperature Pulse Rate 73 76 Respiratory Rate Blood Pressure 102/59 Blood Pressure [Right] O2 Sat by Pulse 96 94 Oximetry - Exam Breasts: normal Abdomen: Present: normal appearance, soft, normal bowel sounds Vulva: both: normal Uterus: Present: normal, other (gravid) FHR: auscultation normal, category 1 Uterine Contraction Monitor Mode: External Cervical Dilatation: 4.5 Cervical Effacement Percentage: 75 station: -2 Uterine Contraction Pattern: Regular Uterine Tone Measurement Phase: Resting Uterine Contraction Intensity: Strong/Firm Extremities: normal - Labs Labs: Abnormal Labs 12/08/20 12/08/20 12/08/20 21:07 21:07 22:55 RBC 3.29 L Hct 28.5 L MCHC 36 H RDW 15.5 H BUN 6 L Alkaline Phosphatase 180 H Albumin 3.2 L Hepatitis C Antibody Reactive A Laboratory Results - last 24 hr 12/09/20 12/10/20 Unknown 09:00 Urine Opiates Screen Negative Urine Methadone Screen Negative Ur Barbiturates Screen Negative Ur Phencyclidine Scrn Negative Ur Amphetamines Screen Negative U Benzodiazepines Scrn Negative Urine Cocaine Screen Negative U Marijuana (THC) Screen Negative Drugs of Abuse Note Disclamer Coronavirus (PCR) Negative
[2020-12-10] MEDS: ONDANSETRON 4 MG/2 ML INJ IV PRN (13:41)
[2020-12-10] MEDS ORDERED: LANOLIN/ZINC/DIMETHICONE (LANSINOH) 7 GM TP PRN (18:00)
[2020-12-10] MEDS ORDERED: WITCH HAZEL/ GLYCERIN PAD TP PRN ×2 (18:00→18:01)
[2020-12-10] MEDS ORDERED: ACETAMINOPHEN 325 MG TAB PO PRN (18:00)
[2020-12-10] MEDS ORDERED: diphenhydrAMINE 25 MG CAP PO PRN ×2 (18:00→18:01)
[2020-12-10] MEDS ORDERED: PROMETHAZINE 25 MG TAB PO PRN ×2 (18:00→18:01)
[2020-12-10] MEDS ORDERED: ONDANSETRON 4 MG/2 ML INJ IV PRN ×2 (18:00→18:01)
[2020-12-10] MEDS ORDERED: PROMETHAZINE 25 MG RECT SUPP PR PRN ×2 (18:00→18:01)
[2020-12-10] MEDS ORDERED: MAGNESIUM HYDROXIDE (MOM) ORAL LIQD UDC PO PRN (18:00)
--- NOTE | 2020-12-10 18:16 | Procedure Note ---
OB Delivery Note - Delivery Date of Delivery: 12/10/20 Surgeon: JUAN ANTHONY Estimated blood loss: 300cc - Vaginal Delivery presentation: vertex Delivery position: OA Intrapartum events: none Delivery induction: oxytocin Delivery augmentation: rupture of membranes Delivery monitor: external FHT, external uterine Route of delivery: Delivery placenta: spontaneous Delivery cord: 3 umbilical vessels Episiotomy: none Delivery laceration: none Anesthesia: epidural Delivery comments: Called to delivery and pt was . of a viable male . Spontaneous delivery of head and shoulders. was placed on mom's chest for skin to skin bonding while nurse dried and stimulated baby. Delayed cord clamping then cord was clamped x 2 and cut. Infant was taken by NICU nurse for an asses. 8/9. Spontaneous delivery of intact placenta with CVX3. FF@U2 with fundal massage and IV Pitocin. An exploration of tears revealed none. EBL 300cc. Mom and baby was left in stable condition with nurse. - A at 1 minute: 8 at 5 minutes: 9 Gender: Male
[2020-12-10] MEDS: HYDROcodone/ACETAMINOPHEN 5-325 MG TAB PO PRN (18:28)
[2020-12-10] MEDS ORDERED: IBUPROFEN 600 MG TAB PO SCH (19:00)
[2020-12-10] MEDS: IBUPROFEN 600 MG TAB PO SCH (22:04)
[2020-12-11] MEDS: HYDROcodone/ACETAMINOPHEN 5-325 MG TAB PO PRN ×4 (01:00→21:41)
[2020-12-11] MEDS: IBUPROFEN 600 MG TAB PO SCH ×4 (05:13→17:41)
[2020-12-11 06:22] LABS: Hematocrit 24.5 % (30.3-42.9); Hemoglobin 8.5 gm/dl (10.1-14.3)
[2020-12-11] MEDS: MAGNESIUM HYDROXIDE (MOM) ORAL LIQD UDC PO PRN (10:22)
--- NOTE | 2020-12-11 13:11 | Progress Note ---
Assessment and Plan A: PP Day #1 Asymptomatic Anemia Hepatitis C P: Follow Routine Orders FESO4 325mg PO BID Couseling: Hep. C ID Consult D/C Home today per patient request RTO in 6 Weeks Subjective - Subjective Date of service: 12/11/20 Principal diagnosis: 41.5 wk IUP Patient reports: appetite normal, voiding normally, pain well controlled, flatus, ambulating normally [place]: doing well Objective - Vital Signs Latest vital signs: Vital Signs Temp Pulse Resp BP BP Pulse Ox 12/11/20 11:53 18 12/11/20 09:07 18 12/11/20 08:46 97.9 F 72 18 111/79 12/11/20 04:32 97.8 F 82 20 112/75 98 12/11/20 00:35 98.6 F 86 18 98/64 100 12/10/20 19:35 98 F 91 H 18 119/48 98 12/10/20 18:36 88 115/56 12/10/20 18:35 61 86 12/10/20 18:32 82 84 12/10/20 18:28 20 12/10/20 18:26 129 H 168/64 12/10/20 18:25 76 82 L 12/10/20 18:22 100 H 179/73 12/10/20 18:19 80 L 12/10/20 18:18 88 100 12/10/20 18:13 89 100 12/10/20 18:10 91 H 20 110/67 100 12/10/20 18:08 91 H 100 12/10/20 18:06 80 110/66 88 12/10/20 18:03 101 H 100 12/10/20 17:58 95 H 99 12/10/20 17:55 85 118/59 12/10/20 17:53 99 H 99 12/10/20 17:50 61 20 118/59 100 12/10/20 17:48 78 100 12/10/20 17:35 22 110/66 89 12/10/20 17:20 78 22 114/65 100 12/10/20 17:06 99.3 F 89 20 110/60 100 12/10/20 17:04 90 109/56 12/10/20 16:55 73 82 L 12/10/20 16:50 109 H 97 12/10/20 16:45 78 100 12/10/20 16:40 86 99 12/10/20 16:35 88 100 12/10/20 16:30 78 97 12/10/20 16:16 95 H 81 L 12/10/20 16:15 96 H 88 12/10/20 16:11 74 95 12/10/20 16:07 90 0 L 12/10/20 16:06 93 H 0 L 12/10/20 16:01 84 94 12/10/20 15:57 105 H 80 L 12/10/20 15:56 100 H 98 12/10/20 15:51 88 99 12/10/20 15:50 80 96/58 12/10/20 15:46 86 93 12/10/20 15:43 90 90 12/10/20 15:41 77 83 L 12/10/20 15:36 103 H 100 12/10/20 15:35 76 84 12/10/20 15:31 79 91 12/10/20 15:28 113 H 86 12/10/20 15:26 88 98 12/10/20 15:21 82 98 12/10/20 15:20 85 92 12/10/20 15:19 81 106/64 12/10/20 15:16 76 97 12/10/20 15:12 85 90 12/10/20 15:11 71 100 12/10/20 15:06 73 83 L 12/10/20 15:01 74 96 12/10/20 15:00 84 80 L 12/10/20 14:56 98 H 99 12/10/20 14:54 94 H 90 12/10/20 14:51 82 90 12/10/20 14:50 84 98/62 12/10/20 14:47 100 H 91 12/10/20 14:46 104 H 99 12/10/20 14:41 77 100 12/10/20 14:36 83 100 12/10/20 14:31 70 99 12/10/20 14:26 77 80 L 12/10/20 14:21 85 99 12/10/20 14:20 83 95/57 12/10/20 14:17 92 H 85 12/10/20 14:16 87 100 12/10/20 14:11 92 H 100 12/10/20 14:06 73 89 12/10/20 14:01 90 99 12/10/20 14:00 84 89 12/10/20 13:56 83 96 12/10/20 13:54 71 92 12/10/20 13:51 76 100 12/10/20 13:48 93 H 94 12/10/20 13:46 77 87 12/10/20 13:41 86 79 L 12/10/20 13:36 73 93/66 92 12/10/20 13:35 74 81 L 12/10/20 13:31 73 97 12/10/20 13:30 86 81 L 12/10/20 13:26 76 95 12/10/20 13:22 88 85 12/10/20 13:21 77 93/50 100 12/10/20 13:16 70 100 12/10/20 13:11 76 99 12/10/20 13:09 79 86 Intake and Output 12/10/20 12/11/20 12/11/20 22:59 06:59 14:59 Intake Total 46.167 240 560 Output Total 150 900 Balance -103.833 -660 560 Intake: IV 46.167 PITOCin/NS 30 UNIT/500ML 46.167 30 units In 500 ml @ 2 mls/hr IV TITR LISA Rx#: [id number] Oral 240 560 Output: Urine 150 900 Void 150 900 Other: Total, Intake Amount 240 120 Total, Output Amount 150 900 # Voids Void 1 1 Estimated Blood Loss 300 - Exam Breasts: Present: normal Cardiovascular: Present: Regular rate Lungs: Present: Clear to auscultation, Normal air movement Abdomen: Present: normal appearance, soft, normal bowel sounds Uterus: Present: normal, firm, fundal height below umbilicus Extremities: Present: normal - Labs Labs: Abnormal lab results 12/11/20 Range/Units 05:42 Hgb 8.5 L (10.1-14.3) gm/dl Hct 24.5 L (30.3-42.9) %
--- NOTE | 2020-12-11 13:13 | Discharge Summary ---
Providers - Providers Date of Admission: 12/08/20 20:40 Date of discharge: 12/11/20 Attending physician: MAGDALENE PATEL MD 12/11/20 11:21 Consult to Infection Control Nurse [CONS] Urgent Reason For Exam: hep. C Primary care physician: MAGDALENE PATEL MD Hospitalization Reason for admission: induction of labor Delivery: Episiotomy: none Laceration: none Other procedures: none complications: none Discharge diagnosis: IUP at term delivered [place] baby: male Condition at discharge: Good Disposition: DC-01 TO HOME OR SELFCARE Plan - Provider Discharge Summary Activity: routine, no sex for 6 weeks, no heavy lifting 4 weeks, no strenuous exercise Diet: routine Instructions: routine Additional instructions: [] Smoking cessation referral if applicable(refer to patient education folder for contact #) [] Refer to [facility]'s [facility] Booklet Call your doctor immediately for: * Fever > 100.5 * Heavy vaginal bleeding ( >1 pad per hour) * Severe persistent headache * Shortness of breath * Reddened, hot, painful area to leg or breast * Drainage or odor from incision. * Keep incision clean and dry at all times and follow doctor's instructions regarding bathing/showering - Follow up plan Follow up: MAGDALENE PATEL MD [Primary Care Provider] - 6 Weeks
--- NOTE | 2020-12-11 15:00 | Post Anesthesia Evaluation ---
- Post Anesthesia Evaluation Patient Participated: Yes Airway Patent: Yes Stable Respiratory Function: Yes Nausea/Vomiting: No Temp > 96.8F: Yes Pain Manageable: Yes Adequeate Hydration: Yes Anesthesia Complications: No Block Receding Appropriately: Yes Patient on Ventilator: No
[2020-12-11] MEDS: LANOLIN/ZINC/DIMETHICONE (LANSINOH) 7 GM TP PRN (15:39)
[2020-12-12] MEDS: IBUPROFEN 600 MG TAB PO SCH (00:17)
[2020-12-12] MEDS: LANOLIN/ZINC/DIMETHICONE (LANSINOH) 7 GM TP PRN (00:26)
[2020-12-12] MEDS: HYDROcodone/ACETAMINOPHEN 5-325 MG TAB PO PRN (15:50)
[2020-12-12 17:33] VITALS: BP 112/79
[2020-12-12] MEDS: MAGNESIUM HYDROXIDE (MOM) ORAL LIQD UDC PO PRN (17:48)
== END 2020-12-12 18:06 | disposition home or self-care (01) | DRG 774 ==
LOC: LD 20:40 → OB 12-10 19:41
PROVIDERS: ADMIT Obstetrics & Gynecology; ATTEND Obstetrics & Gynecology
PROC: 0U7C7ZZ Dilation of Cervix, Via Natural or Artificial Opening (ICD-10-PCS; 2020-12-09)
PROC: 10E0XZZ Delivery of Products of Conception, External Approach (ICD-10-PCS; principal; 2020-12-10)
PROC: 3E033VJ Introduction of Other Hormone into Peripheral Vein, Percutaneous Approach (ICD-10-PCS; 2020-12-10)
PROC: 3E0R3BZ Introduction of Anesthetic Agent into Spinal Canal, Percutaneous Approach (ICD-10-PCS; 2020-12-10)
PROC: 00HU33Z Insertion of Infusion Device into Spinal Canal, Percutaneous Approach (ICD-10-PCS; 2020-12-10)
DX: O48.0 Post-term pregnancy (principal); O98.42 Viral hepatitis complicating childbirth; O99.02 Anemia complicating childbirth; B19.20 Unspecified viral hepatitis C without hepatic coma; O47.1 False labor at or after 37 completed weeks of gestation; F17.200 Nicotine dependence, unspecified, uncomplicated; O99.334 Smoking (tobacco) complicating childbirth; Z20.822 Contact with and (suspected) exposure to COVID-19; O99.52 Diseases of the respiratory system complicating childbirth; J45.909 Unspecified asthma, uncomplicated; O99.62 Diseases of the digestive system complicating childbirth; K21.9 Gastro-esophageal reflux disease without esophagitis; Z3A.41 41 weeks gestation of pregnancy; Z37.0 Single live birth; Z82.49 Family history of ischemic heart disease and other diseases of the circulatory system; Z83.3 Family history of diabetes mellitus; Z80.9 Family history of malignant neoplasm, unspecified; Z79.899 Other long term (current) drug therapy; Z91.14 Patient's other noncompliance with medication regimen
CPT/HCPCS: 36415; 76815; 80053; 80307; 85014; 85018; 85027; 86592; 86706; 86803; 86850; 86900; 86901; 87517; 87806; G0378; J0290; J0595; J2405; J2590; J7120; U0003